=== PATIENT | female | born 1945 | race Caucasian/White ===

== ENCOUNTER 2018-11-01 12:59 | Outpatient (CLI) | payer MEDICARE, BC ==
[~2018-11-01 12:59] MED LIST: ATOR20TA PO; CITA20TA28 PO; FENO135C4 PO; HYDR-4383 PO; METF500T PO; NITR100C6 PO; OMEP20TA5 PO; PHEN-824 PO
== END 2018-11-01 23:59 | disposition home or self-care (01) ==
LOC: CARD DIAG 12:59
PROVIDERS: ATTEND Internal Medicine Critical Care Medicine
DX: I08.8 Other rheumatic multiple valve diseases (principal); C34.90 Malignant neoplasm of unspecified part of unspecified bronchus or lung
CPT/HCPCS: 93306